=== PATIENT | female | born 1980 | race Caucasian/White ===

== ENCOUNTER → 2021-01-02 | Outpatient (CLI) | payer OTHER ==
[~2021-01-02] MED LIST: BENTYL 10MG CAP10 MG PO; CLARITIN10 MG PO; GLUCOPHAGE 500500 MG PO; LODINE CAP 300300 MG PO; MEDROL4 MG PO; PERCOCET 5/325 T1 EA PO; PROTONIX40 MG PO; SERTRALINE HCL50 MG PO; SINGULAIR10 MG PO; SYNTHROID 88 M88 MCG PO; TAMIFLU75 MG PO; ZOFRAN ODT 4 MG4 MG PO; ZYRTEC10 MG PO; ZYVOX600 MG PO
== END ==
LOC: RAD 19:17
DX: M54.6 Pain in thoracic spine (principal); M48.04 Spinal stenosis, thoracic region; M43.8X4 Other specified deforming dorsopathies, thoracic region
CPT/HCPCS: 72072

== ENCOUNTER 2021-04-08 14:31 | Emergency (ER) | payer OTHER | END 2021-04-08 17:04 | disposition home or self-care (01) | LOC: ER1 14:31 | DX: S51.812A Laceration without foreign body of left forearm, initial encounter (principal); S00.83XA Contusion of other part of head, initial encounter; Y99.1 Military activity; E11.9 Type 2 diabetes mellitus without complications; E03.9 Hypothyroidism, unspecified; F17.290 Nicotine dependence, other tobacco product, uncomplicated; Z79.84 Long term (current) use of oral hypoglycemic drugs; Z79.899 Other long term (current) drug therapy; Y04.2XXA Assault by strike against or bumped into by another person, initial encounter; Z88.8 Allergy status to other drugs, medicaments and biological substances; Y92.009 Unspecified place in unspecified non-institutional (private) residence as the place of occurrence of the external cause | CPT/HCPCS: 90471; 90715; 96372; 99283; J1885 ==

== ENCOUNTER 2021-07-11 14:02 | Emergency (ER) | payer OTHER ==
[~2021-07-11] VITALS: Ht 165.1 cm; Wt 174.6 kg
== END 2021-07-11 15:20 | disposition home or self-care (01) ==
LOC: ER1 14:02
DX: Z23 Encounter for immunization (principal); U07.1 COVID-19; E11.9 Type 2 diabetes mellitus without complications; K21.9 Gastro-esophageal reflux disease without esophagitis; E03.9 Hypothyroidism, unspecified; F17.200 Nicotine dependence, unspecified, uncomplicated; Z88.8 Allergy status to other drugs, medicaments and biological substances
CPT/HCPCS: 71045; 99284; M0243

== ENCOUNTER 2022-04-14 18:17 | Emergency (ER) | payer OTHER ==
[2022-04-14 20:06] LABS: HEMOGLOBIN 14.3 gm/dl (12.3-15.3); RED BLOOD COUNT 5.65 M/UL (4.00-5.10); WHITE BLOOD COUNT 9.8 K/UL (4.5-11.0)
[2022-04-14 20:25] LABS: BUN/CREATININE RATIO 25 (0-10)
[2022-04-14] MEDS ORDERED: CEFDINIR300 MG PO (23:00)
[2022-04-14] MEDS ORDERED: PERCOCET 5/325 T1 EA PO (23:00)
[2022-04-15] MEDS ORDERED: DIFLUCAN150 MG PO (00:31)
== END 2022-04-15 00:36 | disposition home or self-care (01) ==
LOC: ER1 18:17
PROVIDERS: Physician Assistant
DX: R10.30 Lower abdominal pain, unspecified (principal); R10.824 Left lower quadrant rebound abdominal tenderness; R10.813 Right lower quadrant abdominal tenderness; E11.40 Type 2 diabetes mellitus with diabetic neuropathy, unspecified; Z79.84 Long term (current) use of oral hypoglycemic drugs
CPT/HCPCS: 80053; 81001; 82150; 83690; 84703; 85025; 87077; 87086; 87186; 96374; 96375; 99284; J0696; J2270; J2405; Q9967